=== PATIENT | male | born 1990 | race Two or more races ===

== ENCOUNTER 2017-09-14 18:26 | Emergency (ER) ==
[2017-09-14 18:37] VITALS: BP 121/82; TEMP 98.8; BMI 26.6
[2017-09-14] MEDS ORDERED: DILAUDID 2 MG/ML SYRINGE IM STA (19:23)
[2017-09-14] MEDS ORDERED: DILAUDID 2 MG/ML SYRINGE ONE (19:27)
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
== END 2017-09-14 21:10 | disposition home or self-care (01) ==
LOC: ED 18:26
DX: S89.91XA Unspecified injury of right lower leg, initial encounter (principal); V09.1XXA Pedestrian injured in unspecified nontraffic accident, initial encounter; Y92.74 Orchard as the place of occurrence of the external cause; Y99.0 Civilian activity done for income or pay; F17.210 Nicotine dependence, cigarettes, uncomplicated
CPT/HCPCS: 96372; 99283